=== PATIENT | male | born 1950 | race Caucasian/White ===

== ENCOUNTER → 2017-10-05 | Outpatient (CLI) | payer MEDICARE ==
[~2017-10-05] MED LIST: ASCO500; ATOR80 PO; Amlodipine-Ben1 EACH PO; CLOP75 PO; GABA800 PO; GLUCOSAMINE1000 MG PO; TRAM50 PO; WARF5 PO
[2017-10-05 12:35] LABS: Source, Urine Clean Catch
[2017-10-05 13:15] LABS: Bilirubin, Urine Neg (Neg); Blood, Urine 4+ (Neg); Glucose Qualitative, Urine Neg (Neg); Ketones, Urine 1+ (Neg); Leukocyte Esterase, Urine 3+ (Neg); Nitrite, Urine Pos (Neg); Protein, Urine 2+ (Neg); Urobilinogen, Urine 2+ (Normal)
[2017-10-05 13:22] LABS: Appearance, Urine Hazy (Clear); Color, Urine Amber (P-Yellow)
[2017-10-05 13:23] LABS: Squamous Epithelial Cells Not Seen /hpf (Few); White Blood Cells, Urine 25-50 /hpf (0-5)
[2017-10-05 13:24] LABS: Bacteria Mod /hpf
[2017-10-05 13:25] LABS: Granular Casts 0-2 /lpf (0)
== END ==
LOC: LAB SHORT 12:34 → OLS 12:34 → LAB FUT 10-05 11:40 → EDSTATUS 10-05 11:40
PROVIDERS: Physician Assistant
DX: N39.0 Urinary tract infection, site not specified (principal)
CPT/HCPCS: 81001; 87077; 87086; 87186